=== PATIENT | male | born 1960 | race Caucasian/White ===

== ENCOUNTER 2018-02-28 07:38 | Day surgery (SDC) | payer OTHER ==
[~2018-02-28] VITALS: Ht 165.1 cm; Wt 74.9 kg
[~2018-02-28 07:38] MED LIST: ADULT LOW DOSE81 M1 PO; COZAAR50 MG PO; ERGOCALCIF50000 UNIT PO; FLOMAX0.4 MG PO; LEXAPRO10 MG PO; METFORMIN HCL850 MG PO; OMEPRAZOLE40 M1 PO; ROXICODONE5 MG PO; TRULICITY0.75 MG/0. SC; VITAMIN B12 PO; VITAMIN B122500 MCG PO; VITAMIN D2 PO; WELLBUTRIN XL300 MG PO; XANAX1 MG PO; ZOCOR40 MG PO
[2018-02-28 08:01] VITALS: BP 128/69
[2018-02-28] MEDS ORDERED: TRAMADOL HCL50 MG PO (15:07)
[2018-02-28 16:16] VITALS: BP 125/66
== END 2018-02-28 17:32 | disposition home or self-care (01) ==
LOC: SDC 07:38
PROVIDERS: Surgery
DX: R59.0 Localized enlarged lymph nodes (principal); L82.1 Other seborrheic keratosis; E11.9 Type 2 diabetes mellitus without complications; K21.9 Gastro-esophageal reflux disease without esophagitis; E78.5 Hyperlipidemia, unspecified; G47.33 Obstructive sleep apnea (adult) (pediatric); Z87.891 Personal history of nicotine dependence; Z88.0 Allergy status to penicillin; Z79.84 Long term (current) use of oral hypoglycemic drugs; Z79.82 Long term (current) use of aspirin
CPT/HCPCS: 82948; 88305; J1170; J2250; J2405; J3010